=== PATIENT | female | born 1960 ===

== ENCOUNTER → 2019-02-28 | Outpatient (CLI) | payer OTHER | END | disposition home or self-care (01) | LOC: RAD 09:59 | DX: M25.551 Pain in right hip (principal); M25.552 Pain in left hip; M25.561 Pain in right knee ==

== ENCOUNTER 2019-03-07 10:08 | Outpatient (CLI) | payer OTHER | END 2019-03-07 10:10 | disposition home or self-care (01) | LOC: MRI 10:08 | DX: M25.562 Pain in left knee (principal); M17.12 Unilateral primary osteoarthritis, left knee; M23.92 Unspecified internal derangement of left knee | CPT/HCPCS: 73721 ==

== ENCOUNTER → 2019-03-08 | Outpatient (CLI) | payer OTHER | END | disposition home or self-care (01) | LOC: NUCLEAR 12:46 | DX: M81.0 Age-related osteoporosis without current pathological fracture (principal) ==